=== PATIENT | female | born 1975 | race Caucasian/White ===

== ENCOUNTER → 2019-06-19 11:00 | Outpatient (CLI) | payer SELFPAY ==
--- NOTE | 2019-06-19 11:28 | DI.RAD.S_ITS ---
PROCEDURE: XR CHEST 2V INDICATIONS: Aspiration. TECHNIQUE: 2 views of the chest were acquired. COMPARISON: Located within [facility], CHEST 1 VIEW, 10/09/2017, 16:43. Located within [facility], CHEST 2 VIEW, 09/12/2016, 21:25. FINDINGS: Surgical changes and devices: Low cervical fusion plate again noted.. Lungs and pleura: Lungs are clear. No pleural effusions or pneumothorax. Mediastinum: Mediastinal contours are normal. Heart size is normal. Bones and chest wall: No suspicious bony abnormalities. Soft tissues appear unremarkable. IMPRESSION: Normal for age, source of current aspiration symptoms is not seen. Dictated by: Rock Soares M.D. on 06/19/2019 at 12:13 Approved by: Rock Soares M.D. on 06/19/2019 at 12:14
== END ==
PROVIDERS: Family Provider Family Medicine; PCP Family Medicine; Visit Provider Family Medicine
DX: T17.908A Unspecified foreign body in respiratory tract, part unspecified causing other injury, initial encounter (principal)
CPT/HCPCS: 71046

== ENCOUNTER → 2019-09-03 11:58 | Outpatient (CLI) | payer SELFPAY ==
--- NOTE | 2019-09-03 12:13 | DI.RAD.S_ITS ---
PROCEDURE: XR SCAPULA LT INDICATIONS: left shoulder pain TECHNIQUE: 2 views of the scapula were acquired. COMPARISON: None. FINDINGS: Bones: No acute fractures or dislocations, but there is a previously present overlap healed mid shaft left clavicular fracture. No suspicious bony lesions. Visualized ribs appear intact. Soft tissues: Overlying soft tissues appear normal. IMPRESSION: Healed left mid shaft overlapped clavicular fracture, no acute disease. Dictated by: Rock Soares M.D. on 09/03/2019 at 13:33 Approved by: Rock Soares M.D. on 09/03/2019 at 13:34
--- NOTE | 2019-09-03 12:13 | DI.RAD.S_ITS ---
PROCEDURE: XR SHOULDER LT MIN 2V INDICATIONS: left shoulder pain TECHNIQUE: 3 views of the shoulder were acquired. COMPARISON: None. FINDINGS: Bones: No acute fractures or dislocations, and the middle third of the left clavicle demonstrates an overlapped healed fracture, with overlap measuring up to 2.5 cm.. No suspicious bony lesions. Visualized ribs appear intact. Soft tissues: No suspicious soft tissue calcifications. IMPRESSION: Prior trauma the clavicle, with overlap healed fracture, but no trauma to the shoulder joint itself is found. Dictated by: Rock Soares M.D. on 09/03/2019 at 13:34 Approved by: Rock Soares M.D. on 09/03/2019 at 13:35
--- NOTE | 2019-09-03 12:13 | DI.RAD.S_ITS ---
PROCEDURE: XR CERVICAL SPINE 2V OR 3V INDICATIONS: Left shoulder pain TECHNIQUE: 3 view(s) of the cervical spine were acquired. COMPARISON: [facility], CR, CLAVICLE LEFT 2 VIEWS, 09/04/2016, 12:53. FINDINGS: Bones: No acute fractures or dislocations to the T1 level. There is an anterior fusion plate crossing C6-C7 without evidence of device loosening or disruption. Mild degenerative disc disease at C5-6. The lateral masses of C1 appear intact on the odontoid view. No suspicious bony lesions. Soft tissues: No prevertebral soft tissue swelling. IMPRESSION: Prior anterior cervical fusion plate C6-C7, mild C5-6 degenerative disc disease associated. Dictated by: Rock Soares M.D. on 09/03/2019 at 13:32 Approved by: Rock Soares M.D. on 09/03/2019 at 13:33
== END ==
PROVIDERS: Family Provider Family Medicine; PCP Family Medicine; Visit Provider Nurse Practitioner Family
DX: M25.512 Pain in left shoulder (principal); M50.322 Other cervical disc degeneration at C5-C6 level; Z98.1 Arthrodesis status; Z87.81 Personal history of (healed) traumatic fracture
CPT/HCPCS: 72040; 73010; 73030